=== PATIENT | male | born 1975 | race African-American/Black ===

== ENCOUNTER 2017-01-18 14:40 | Emergency (ER) | payer SELFPAY ==
[2017-01-18 14:52] VITALS: BP 141/83
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
== END 2017-01-18 19:14 | disposition home or self-care (01) ==
LOC: ED 14:40
DX: K02.9 Dental caries, unspecified (principal); R68.84 Jaw pain; K08.89 Other specified disorders of teeth and supporting structures; R51 Headache; F17.210 Nicotine dependence, cigarettes, uncomplicated
CPT/HCPCS: 99282

== ENCOUNTER 2017-04-10 15:49 | Emergency (ER) | payer SELFPAY ==
[2017-04-10] MEDS ORDERED: Lidocaine 2.5%/Prilocain 2.5%* 5 GM TUBE TOPICAL ONE (17:28)
[2017-04-10] MEDS ORDERED: HYDROcodone/ACETAMIN 5-325 MG* 1 TAB PO ONE (17:28)
[2017-04-10] MEDS ORDERED: Cephalexin CAP* 500 MG PO ONE (17:28)
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
[2017-04-10 19:05] VITALS: BP 116/68
--- NOTE | 2017-04-10 21:26 | PN ---
Progress Note - Progress Note Date of Service: 04/10/17 Note: Lab called and patient is MRSA positive. sent script for bactrim DS bid x10 days. called patient and told him to flower buncher or picker script at pharmacy.
--- NOTE | 2017-04-12 09:20 | ED ---
Progress - Progress Note Progress Note: Pt's wound cx results indicate + MRSA and + Staph Aureus - he has been rx'd keflex and bactrim. No further tx at this time. Course/Dx - Course Course Of Treatment: time out performed, abscesses anes with EMLA cream, small incision int ohead of both abscesses with minimal amount of drainage excised, no tracking, cultures sent abx given, follow up with PCP - Diagnoses Provider Diagnoses: Abscess of skin of neck
== END 2017-04-10 19:04 | disposition home or self-care (01) ==
LOC: ED 15:49
DX: L02.11 Cutaneous abscess of neck (principal); F17.210 Nicotine dependence, cigarettes, uncomplicated; B95.62 Methicillin resistant Staphylococcus aureus infection as the cause of diseases classified elsewhere
CPT/HCPCS: 10060; 87070; 87077; 87186; 87205; 87640; 87641; 99282; A9270-GY

== ENCOUNTER → 2018-03-01 14:29 | Emergency (ER) | payer SELFPAY ==
[2018-03-01 16:31] VITALS: BP 0/0
== END | disposition left against medical advice (07) ==
LOC: ED 14:29
DX: M79.89 Other specified soft tissue disorders (principal); Z53.21 Procedure and treatment not carried out due to patient leaving prior to being seen by health care provider

== ENCOUNTER 2018-03-02 14:45 | Emergency (ER) | payer SELFPAY ==
[2018-03-02] MEDS ORDERED: Cephalexin CAP* 500 MG PO ONE (16:48)
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
[2018-03-02 17:12] VITALS: BP 137/90
== END 2018-03-02 17:09 | disposition home or self-care (01) ==
LOC: ED 14:45
DX: L03.116 Cellulitis of left lower limb (principal); R21 Rash and other nonspecific skin eruption; F17.210 Nicotine dependence, cigarettes, uncomplicated
CPT/HCPCS: 99282; A9270-GY